=== PATIENT | female | born 1990 | race Caucasian/White ===

== ENCOUNTER 2018-07-18 15:50 | Emergency (ER) | payer OTHER ==
[2018-07-18 15:54] VITALS: BP 129/81; PULSE 55; TEMP 98.6; BMI 26.5
--- NOTE | 2018-07-18 15:55 | PDOC ---
Rapid Medical Evaluation Chief Complaint: Non EmpBld/Body Flud Exposure Time Seen by Provider: 07/18/18 15:52 Medical Evaluation: Allergies Allergy/AdvReac Type Severity Reaction Status Date / Time No Known Allergies Allergy Verified 09/21/12 00:02 07/18/18 15:53 I have performed a brief in person evaluation at triage on this patient. 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 PE: Skin: clear Lungs: clear Heart: RRR MS: Moves all extremities without difficulty Neuro: Alert and oriented Psych: Appropriate affect Pt will proceed to [facility] for further evaluation. Discharge Disposition - Diagnosis Needlestick injury of finger Qualifiers: Encounter type: initial encounter Qualified Code(s): S61.239A - Puncture wound without foreign body of unspecified finger without damage to nail, initial encounter; W27.3XXA - Contact with needle (sewing), initial encounter - Referrals - Patient Instructions - Post Discharge Activity Work/School Note: Back to Work
--- NOTE | 2018-07-18 16:35 | PDOC ---
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) Exposed Location: Left: Hand(s) (thumb) Assessing Significant Risk PEP: Yes Percutaneous Past History - Travel Traveled outside of the country in the last 30 days: No Close contact w/someone who was outside of country & ill: No - Past Medical History Allergies/Adverse Reactions: Allergies Allergy/AdvReac Type Severity Reaction Status Date / Time No Known Allergies Allergy Verified 07/18/18 15:52 Home Medications: Ambulatory Orders NK [No Known Home Medication] 07/18/18 COPD: No - Immunization History Immunization Up to Date: No - Suicide/Smoking/Psychosocial Hx Smoking Status: No Smoking History: Never smoked Number of Cigarettes Smoked Daily: 0 General Medical PMHX - Other General PMHX Angina: No Review of Systems - Review of Systems Constitutional: No: Chills, Fever Respiratory: No: Cough, Orthopnea, Shortness of Breath, Productive cough Cardiac (ROS): No: Chest Pain, Edema, Irregular Heart Rate, Lightheadedness Musculoskeletal: No: Gout, Joint Pain *Physical Exam - Vital Signs Last Vital Signs Temp Pulse Resp BP Pulse Ox 98.6 F 55 L 18 129/81 98 07/18/18 15:52 07/18/18 15:52 07/18/18 15:52 07/18/18 15:52 07/18/18 15:52 - Physical Exam General Appearance: Yes: Nourished Respiratory/Chest: positive: Lungs Clear, Normal Breath Sounds Cardiovascular: positive: Regular Rhythm, Regular Rate, S1, S2 Extremity: positive: Other (L thumb: evidence of needle puncture in lateral aspect of thumb, FROM) Integumentary: positive: Normal Color, Dry Neurologic: positive: first coat sander II-XII NML intact, Fully Oriented, Abnormal Cranial NS Post Exposure - ED Protocol - Exposure Treatment Source Patient HIV Status:: HIV Negative Is PEP indicated?: No Prophylaxis for HIV discussed?: Yes Prophylaxis given?: Yes Prophylaxis refused?: No Treatment Given:: Truvada (Tenof+Emtricita), Isentress (Raltegravir) Drug(s) Information Sheets given:: Yes Baseline bloods drawn prophylaxis:(use *Exposure-Hosp Emp): Yes - Referrals Other Post Exposure pt. 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 This needle was from the procedure she had recently partake in Pt reports RN told her source pt was HIV neg and pt also admits to HIV neg status pt is still requesting labs and PEP her last tetanus was a year ago Advised pt that the risk of HIV transmission is low risk and PEP is not indication given negative pt HIV status, pt insisted on meds 07/18/18 19:00 *DC/Admit/Observation/Transfer Diagnosis at time of Disposition: Needlestick injury of finger Qualifiers: Encounter type: initial encounter Qualified Code(s): S61.239A - Puncture wound without foreign body of unspecified finger without damage to nail, initial encounter - Discharge Dispostion Disposition: HOME Condition at time of disposition: Stable Decision to Admit order: No - Referrals - Patient Instructions Printed Discharge Instructions: How to Handle Body Fluid Exposure -- Healthcare Worker Additional Instructions: Please [facility] as advised for the reminder of PEP meds Otherwise followup with your primary care doctor - Post Discharge Activity Forms/Work/School Notes: Back to Work, HIV Follow-up [facility]
[2018-07-18] MEDS ORDERED: HIV POST EXPOSURE PROPHYLAXIS KIT PO ONE (17:09)
[2018-07-18 17:31] LABS: BASO % 0.6 % (0-2.0); EOS % 4.1 % (0-4.5); HEMATOCRIT 38.5 % (32.4-45.2); HEMOGLOBIN 12.9 GM/dL (10.7-15.3); LYMPH % 40.3 % (8-40); MCH 31.3 pg (25.7-33.7); MCHC 33.4 g/dl (32.0-36.0); MEAN CELL VOLUME 93.6 fl (80-96); MEAN PLT VOLUME 8.3 fl (7.5-11.1); MONO % 5.4 % (3.8-10.2); NEUT % 49.6 % (42.8-82.8); PLATELET COUNT 262 K/MM3 (134-434); RBC 4.11 M/mm3 (3.60-5.2); RDW 13.4 % (11.6-15.6); WHITE BLOOD COUNT 6.6 K/mm3 (4.0-10.0)
[2018-07-18 17:57] LABS: ALBUMIN 3.9 g/dl (3.4-5.0); ALK PHOS 47 U/L (45-117); ANION GAP 7 MMOL/L (8-16); BILIRUBIN,TOTAL 0.2 mg/dL (0.2-1); BLOOD UREA NITROGEN 12 mg/dL (7-18); CALCIUM 8.8 mg/dL (8.5-10.1); CHLORIDE 105 mmol/L (98-107); CO2 24 mmol/L (21-32); CREATININE 0.6 mg/dL (0.55-1.3); GLUCOSE,RANDOM 72 mg/dL (74-106); POTASSIUM 4.2 mmol/L (3.5-5.1); SGOT/AST 16 U/L (15-37); SGPT/ALT 26 U/L (13-61); SODIUM 137 mmol/L (136-145); TOT PROT 7.4 g/dl (6.4-8.2)
[2018-07-18] MEDS ORDERED: RALTEGRAVIR POTASSIUM 400 MG TAB PO SCH (22:00)
[2018-07-19] MEDS ORDERED: EMTRICITABINE 200MG/TENOFOVIR 300MG PO SCH (10:00)
[2018-07-20 03:10] LABS: HBsAG SCREEN Negative (Negative)
== END 2018-07-18 18:59 | disposition home or self-care (01) ==
LOC: JERFT 15:50
DX: S61.032A Puncture wound without foreign body of left thumb without damage to nail, initial encounter (principal); W46.1XXA Contact with contaminated hypodermic needle, initial encounter; Y93.89 Activity, other specified; Y92.531 Health care provider office as the place of occurrence of the external cause; Y99.0 Civilian activity done for income or pay
CPT/HCPCS: 36415; 80053; 85025; 86317; 86706; 86803; 87340; 87389; 99281-25